=== PATIENT | female | born 1990 | race Caucasian/White ===

== ENCOUNTER 2017-07-17 15:16 | Inpatient (IN) | payer OTHER ==
[2017-07-17] VITALS (7 sets, daily range): BP systolic 121–140; BP diastolic 66–77
[~2017-07-17] VITALS: Ht 162.6 cm; Wt 127.5 kg
[2017-07-17 16:00] LABS: BASOPHIL (%) 0.3 % (0-1); EOSINOPHIL (%) 0.8 % (0-5); EOSINOPHIL COUNT 0.1 K/uL (0-0.3); HEMATOCRIT 36.6 % (36.0-46.0); HEMOGLOBIN 12.3 G/DL (11.9-15.5); IMMATURE GRANULOCYTE (%) 0.3 % (0.0-0.7); LYMPHOCYTE (%) 15.3 % (15-42); LYMPHOCYTE COUNT 1.9 K/uL (1.0-2.8); MCH 29.6 PG (29.0-34.0); MCHC 33.6 G/DL (30.0-36.0); MCV 88.2 FL (83-99); MONOCYTE (%) 5.6 % (3-12); MONOCYTE COUNT 0.7 K/uL (0-0.8); NEUTROPHIL (%) 77.7 % (45-76); NEUTROPHIL COUNT 9.5 K/uL (1.8-6.4); PLATELET COUNT 261 K/uL (156-360); RBC DIS.WIDTH-CV 13.2 % (11.8-14.6); RBC DIS.WIDTH-SD 42.5 % (39-53); RED BLOOD COUNT 4.15 M/uL (3.80-5.20); WHITE BLOOD COUNT 12.3 K/uL (4.1-10.2)
[2017-07-17] MEDS ORDERED: BUSPAR15 MG PO (16:19)
[2017-07-17] MEDS ORDERED: PRENATAL TABLE1 EAC3 PO (16:19)
[2017-07-17 16:26] LABS: ALKALINE PHOSPHATASE 109 IU/L (3-129); ALT (GPT) 15 IU/L (3-49); AST (GOT) 16 IU/L (2-34); CHLORIDE 108 MEQ/L (99-109); CREATININE 0.7 MG/DL (0.6-1.3); GFR ESTIMATE (CALCULATED) > 59 mL/min/; GLUCOSE 79 mg/dL (70-99); POTASSIUM 3.9 MEQ/L (3.7-5.4); SODIUM 135 MEQ/L (136-147); TOTAL BILIRUBIN 0.2 MG/DL (0.0-1.0); TOTAL PROTEIN 6.2 G/DL (6.4-8.3); UREA NITROGEN (BUN) 12 mg/dL (9-23)
[2017-07-17 16:58] LABS: UR CREATININE CONCENTRATION 29.7 MG/DL
[2017-07-17 17:22] LABS: LACTATE DEHYDROGENASE 162 IU/L (20-246); URIC ACID 6.3 mg/dL (3.1-9.2)
[2017-07-18] VITALS (8 sets, daily range): BP systolic 124–180; BP diastolic 66–90
[2017-07-18 21:30] LABS: 24 HR VOLUME 5275 MLS
[2017-07-18 22:02] LABS: BASOPHIL (%) 0.2 % (0-1); EOSINOPHIL COUNT 0.1 K/uL (0-0.3); HEMATOCRIT 36.7 % (36.0-46.0); HEMOGLOBIN 12.5 G/DL (11.9-15.5); IMMATURE GRANULOCYTE (%) 0.4 % (0.0-0.7); LYMPHOCYTE (%) 17.9 % (15-42); LYMPHOCYTE COUNT 2.5 K/uL (1.0-2.8); MCH 30.5 PG (29.0-34.0); MCHC 34.1 G/DL (30.0-36.0); MCV 89.5 FL (83-99); MONOCYTE (%) 6.4 % (3-12); MONOCYTE COUNT 0.9 K/uL (0-0.8); NEUTROPHIL (%) 74.1 % (45-76); NEUTROPHIL COUNT 10.1 K/uL (1.8-6.4); PLATELET COUNT 252 K/uL (156-360); RBC DIS.WIDTH-CV 13.3 % (11.8-14.6); RBC DIS.WIDTH-SD 43.8 % (39-53); WHITE BLOOD COUNT 13.7 K/uL (4.1-10.2)
[2017-07-19] VITALS (37 sets, daily range): BP systolic 115–170; BP diastolic 60–91
[2017-07-20] VITALS (21 sets, daily range): BP systolic 101–168; BP diastolic 55–94
[2017-07-21 03:00] VITALS: BP 149/80
[2017-07-21 07:28] LABS: BASOPHIL (%) 0.4 % (0-1); BASOPHIL COUNT 0.1 K/uL (0-0.1); EOSINOPHIL (%) 1.5 % (0-5); EOSINOPHIL COUNT 0.2 K/uL (0-0.3); HEMATOCRIT 29.3 % (36.0-46.0); IMMATURE GRANULOCYTE (%) 0.3 % (0.0-0.7); LYMPHOCYTE (%) 21.5 % (15-42); LYMPHOCYTE COUNT 2.6 K/uL (1.0-2.8); MCH 30.1 PG (29.0-34.0); MCHC 33.4 G/DL (30.0-36.0); MCV 89.9 FL (83-99); MONOCYTE (%) 7.2 % (3-12); MONOCYTE COUNT 0.9 K/uL (0-0.8); NEUTROPHIL (%) 69.1 % (45-76); NEUTROPHIL COUNT 8.5 K/uL (1.8-6.4); PLATELET COUNT 202 K/uL (156-360); RBC DIS.WIDTH-CV 13.7 % (11.8-14.6); RBC DIS.WIDTH-SD 44.4 % (39-53); WHITE BLOOD COUNT 12.3 K/uL (4.1-10.2)
[2017-07-21 07:31] LABS: HEMOGLOBIN 9.8 G/DL (11.9-15.5); RED BLOOD COUNT 3.26 M/uL (3.80-5.20)
[2017-07-21 07:48] VITALS: BP 140/79
[2017-07-21 11:27] VITALS: BP 140/85
[2017-07-21 14:59] VITALS: BP 142/84
[2017-07-21 19:14] VITALS: BP 135/80
[2017-07-22 02:50] VITALS: BP 147/89
[2017-07-22 08:51] VITALS: BP 140/77
[2017-07-22] MEDS ORDERED: NIFEDIPINE ER30 MG PO (10:44)
[2017-07-22] MEDS ORDERED: IBUPROFEN800 MG PO (10:44)
[2017-07-22] MEDS ORDERED: CHROMAGEN,1 CAPSULE PO (10:44)
== END 2017-07-22 14:57 | disposition home or self-care (01) | DRG 775 ==
LOC: LDRP-OP 15:16 → 2WEST 15:17
PROVIDERS: Advanced Practice Midwife; Obstetrics & Gynecology
DX: O14.94 Unspecified pre-eclampsia, complicating childbirth (principal); O99.02 Anemia complicating childbirth; D62 Acute posthemorrhagic anemia; O99.214 Obesity complicating childbirth; E66.9 Obesity, unspecified; O99.344 Other mental disorders complicating childbirth; O99.340 Other mental disorders complicating pregnancy, unspecified trimester; F41.9 Anxiety disorder, unspecified; Z68.30 Body mass index [BMI] 30.0-30.9, adult; Z37.0 Single live birth; O24.420 Gestational diabetes mellitus in childbirth, diet controlled; Z3A.38 38 weeks gestation of pregnancy; Z87.891 Personal history of nicotine dependence
CPT/HCPCS: 80053; 81050; 82570; 82948; 83615; 84156; 84550; 85025; C1755; G0378; J0595; J2765; J3010; J7120